=== PATIENT | male | born 1995 | race Caucasian/White ===

== ENCOUNTER 2016-12-21 13:58 | Emergency (ER) | payer BC ==
[~2016-12-21] VITALS: Ht 167.6 cm; Wt 105.0 kg
[2016-12-21 13:59] VITALS: BP 146/95; PULSE 97; RESP 20; TEMP 98.5; O2SAT 97
[2016-12-21] MEDS ORDERED: ATOM40 PO (15:12)
[2016-12-21] MEDS ORDERED: PROZ40CA PO (15:12)
--- NOTE | 2016-12-21 15:56 | PD ---
HPI Chief Complaint: Suicide Ideation/Attempt Time Seen by Provider: 14:43 Travel History International Travel<30 days: No Contact w/Intl Traveler<30days: No Traveled to known affect area: No History of Present Illness HPI 21 yo m c/o depressed mood and SI. He plans to buy razors and lacerate radial arteries. Denies prior SA. Compliance with Straterra and Prozac reported. Pt denies drug abuse/alcohol abuse. He is senior at [employer]. School has not been going well this semester. Lives with 2 roommates. PFS Past Medical History Depression: Yes Diminished Hearing: No Past Surgical History Surgical History: No Previous Surgery Social History Alcohol Use: No Tobacco Use: No Substance Use: No Allergies-Medications (Allergen,Severity, Reaction): Coded Allergies: No Known Allergies (Unverified , 12/21/16) Reported Meds & Prescriptions Reported Meds & Active Scripts Active Reported Prozac (Fluoxetine HCl) 40 Mg Cap 40 Mg PO DAILY Strattera (Atomoxetine HCl) 40 Mg Cap 40 Mg PO DAILY Review of Systems Except as stated in HPI: all other systems reviewed are Neg Physical Exam Narrative GENERAL: 21 yo M, WNWD, NAD SKIN: Warm and dry. HEAD: Atraumatic. Normocephalic. EYES: Pupils equal and round. No scleral icterus. No injection or drainage. ENT: No nasal bleeding or discharge. Mucous membranes pink and moist. NECK: Trachea midline. No JVD. CARDIOVASCULAR: Regular rate and rhythm. RESPIRATORY: No accessory muscle use. Clear to auscultation. Breath sounds equal bilaterally. GASTROINTESTINAL: Abdomen soft, non-tender, nondistended. Hepatic and splenic margins not palpable. MUSCULOSKELETAL: Extremities without clubbing, cyanosis, or edema. No obvious deformities. NEUROLOGICAL: Awake and alert. No obvious cranial nerve deficits. Motor grossly within normal limits. Five out of 5 muscle strength in the arms and legs. Normal speech. PSYCHIATRIC: Verbalizes SI. No HI. Data Data Last Documented VS Vital Signs Date Time Temp Pulse Resp B/P (MAP) Pulse Ox O2 Delivery O2 Flow Rate FiO2 12/21/16 13:59 98.5 97 20 146/95 (112) 97 Room Air VS reviewed Orders Orders Psych Screen (12/21/16 14:43) MDM Medical Decision Making Medical Screen Exam Complete: Yes Emergency Medical Condition: Yes Medical Record Reviewed: Yes Differential Diagnosis Major depression, suicidal ideation, adjustment reaction Narrative Course Pt medically stable for evaluation by psychiatry. Pt will wait in the [facility] chairs. Diagnosis Primary Impression: Depression Qualified Codes: F33.1 - Major depressive disorder, recurrent, moderate Additional Impression: Suicidal ideation Adrian Fuentes MD Dec 21, 2016 15:56
== END 2016-12-21 18:30 | disposition home or self-care (01) ==
LOC: NEPD 13:58
DX: F33.1 Major depressive disorder, recurrent, moderate (principal)
CPT/HCPCS: 99283